=== PATIENT | female | born 1955 | race Caucasian/White ===

== ENCOUNTER → 2020-11-19 12:42 | Outpatient (CLI) | payer MEDICARE, SELFPAY ==
--- NOTE | ~2020-11-19 | MM_ITS ---
EXAMINATION: MM screening [facility] BI w sally HISTORY: Screening mammogram TECHNIQUE: Craniocaudal and mediolateral oblique 3-D tomosynthesis images were obtained and synthetic 2-D images were generated. CAD analysis was submitted and interpreted. COMPARISON: 09/26/2019, 03/21/2018, 04/2016 bilateral digital screening mammogram examinations BREAST PARENCHYMAL COMPOSITION: There are scattered areas of fibroglandular density. FINDINGS: Stable mild fibroglandular asymmetry. There is no evidence of suspicious mass, calcificatio n, or architectural distortion to suggest malignancy in either breast. There has been no suspicious i nterval change. IMPRESSION: 1. No mammographic evidence of malignancy. 2. Recommend routine screening mammography in one year. BI-RADS Category 2: Benign finding(s). Reviewed, dictated and finalized at location A. [employer]
== END ==
PROVIDERS: PCP Internal Medicine; Visit Provider Internal Medicine
DX: Z12.31 Encounter for screening mammogram for malignant neoplasm of breast (principal)
CPT/HCPCS: 77063; 77067

== ENCOUNTER 2021-12-17 00:38 | Day surgery (SDC) | payer MEDICARE, SELFPAY ==
[2021-12-08 13:51] VITALS: BMI 23.8
[2021-12-17 08:30] VITALS: BP 175/84; PULSE 86; RESP 20; TEMP 36.7; O2SAT 99; BMI 23.6
[2021-12-17] MEDS: LACTATED RINGERS 1,000 ML 150 ML IV CONT (08:57)
--- NOTE | 2021-12-17 09:20 | P.CONGI_ITS ---
Assessment and Plan Assessment and plan (1) Family history of colon cancer in mother: Code(s): Z80.0 - Family history of malignant neoplasm of digestive organs Status: Acute Assessment and Plan: Patient has a family history of colon cancer in her mother. For this reason screening colonoscopy will be performed now and consider this at 5 year intervals in the future. (2) Dysphagia: Code(s): R13.10 - Dysphagia, unspecified Status: Acute Assessment and Plan: Patient notes infrequent episodes were food will catch in her throat. An EGD is requested to exclude esophageal narrowing or pathology. Further recommendations will be given after endoscopy. GI Consult Note Consult date/time: 12/17/21 09:20 HPI: Carmel Monteiro is a 66 year old female presents for both colonoscopy and EGD. Patient presents for neoplasia screening. Her family history is significant that her mother had colon cancer. Patient underwent a colonoscopy in 2015 that revealed a benign hyperplastic colon polyp. Patient denies any pain. Her bowel habits are regular. She denies any bleeding. Patient does report that food will catch in her throat occasionally. An EGD is requested to exclude obstruction. Patient denies heartburn. She has had no bleeding or weight loss. Review of Systems Review of Systems: All systems reviewed & are unremarkable except as noted in HPI and below PMFSH Family History Family History Mother Carcinoma of colon Family history of malignant neoplasm of esophagus Patient's mother is Father Patient's father is Acute myocardial infarction Sibling Patient's sister is in good health Patient's brother is in good health Social History Social History Smoking status: Former smoker Tobacco type: cigarettes Second hand tobacco smoke exposure: No Alcohol intake: current Drinks per week: 10 Alcohol use details: glass of wine twice a week Substance use: never Substance use type: does not use Living arrangements: alone Spiritual care concerns: No Meds Home Medications and Allergies Home Medications Medication Instructions Recorded Confirmed Type ibuprofen 600 mg tablet 600 mg PO BID #180 tablet 05/25/21 12/17/21 Rx lisinopril 10 mg tablet 10 mg PO DAILY #90 tablet 09/27/21 12/17/21 Rx Allergies Allergy/AdvReac Type Severity Reaction Status Date / Time No Known Allergies Allergy Verified 12/17/21 08:41 Vital Signs Vital Signs - 24 hr 12/17/21 08:30 Temperature 98.1 F Pulse Rate 86 Respiratory Rate 20 Blood Pressure 175/84 H Pulse Oximetry 99 Exam Narrative: Physical exam reveals patient to be alert. Vital signs stable. HEENT exam is unremarkable. Patient is anicteric. Lungs are clear to auscul tation and percussion. Heart is without murmur or extra sounds. Abdominal exam bowel sounds are present soft nontender with no organomegaly. Digital external rectal exam is normal.
[2021-12-17] MEDS: BENZOCAINE (*SP) 60 ML SPRAY CAN (HURRICAINE) 1 SPRAY MUCOUS MEM (09:30)
--- NOTE | 2021-12-17 09:40 | SUR.OPER ---
EGD start [id number] Colonoscopy start [id number]
--- NOTE | 2021-12-17 09:40 | WPDANESEPPF ---
Anes - Initial Pre Proc Eval Procedure: Operation Date: 12/17/21 09:30 Proposed Procedures p Esophagogastroduodenoscopy & Screening Colonoscopy - Aleks Mtz MD Date/Time: 12/17/21 09:40 Surgeon: Aleks Mtz MD Pre Op Diagnosis: hx of colon polyps, dysplasia Patient Data Age: 66 Gender: F Height: 1.65 m Weight: 64.5 kg Last Vital Signs Temp 98.1 F 12/17/21 08:30 Pulse 86 12/17/21 08:30 Resp 20 12/17/21 08:30 BP 175/84 H 12/17/21 08:30 Pulse Ox 99 12/17/21 08:30 Allergies Allergy/AdvReac Type Severity Reaction Status Date / Time No Known Allergies Allergy Verified 12/17/21 08:41 Home Medications Medication Instructions Recorded Confirmed Type ibuprofen 600 mg tablet 600 mg PO BID #180 tablet 05/25/21 12/17/21 Rx lisinopril 10 mg tablet 10 mg PO DAILY #90 tablet 09/27/21 12/17/21 Rx Patient hx anesthesia problems: none Family hx anesthesia problems: none Results Review: All pre-operative results and documents have been reviewed as part of the pre-operative evaluation. [facility] Family History Family History Mother Carcinoma of colon Family history of malignant neoplasm of esophagus Patient's mother is Father Patient's father is Acute myocardial infarction Sibling Patient's sister is in good health Patient's brother is in good health Social History Social History Smoking status: Former smoker Tobacco type: cigarettes Second hand tobacco smoke exposure: No Alcohol intake: current Drinks per week: 10 Alcohol use details: glass of wine twice a week Substance use: never Substance use type: does not use Living arrangements: alone Spiritual care concerns: No Anes - Eval Final PreProcedure Day of Procedure 12/17/21 09:40 Patient weight: normal Heart: regular rate and rhythm Lungs: clear to auscultation Airway: Mallampati scale class II Neurological: alert and oriented Last oral intake: >/= 8 hours ASA classification: II Emergent: no Anesthetic plan: proceed Anesthesia type and monitoring: general GIVS and standard monitoring Results Review: All pre-operative results and documents have been reviewed as part of the pre-operative evaluation. Informed Consent: The patient's anesthetic plan and its attendant risks and benefits were discussed with the patient/family/POA. Questions were solicited and answers provided to the satisfaction of the patient/family/POA.
[2021-12-17 09:59] VITALS: BP 115/69; PULSE 75; RESP 22; O2SAT 100
[2021-12-17 10:09] VITALS: BP 152/91; PULSE 70; RESP 20; O2SAT 100
[2021-12-17 10:19] VITALS: BP 153/69; PULSE 62; RESP 16; O2SAT 100
== END 2021-12-17 10:31 | disposition home or self-care (01) ==
PROVIDERS: PCP Internal Medicine; Visit Provider Internal Medicine Gastroenterology
PROC: 0DJ08ZZ Inspection of Upper Intestinal Tract, Via Natural or Artificial Opening Endoscopic (ICD-10-PCS; CPT 43235; principal; 2021-12-17 09:30)
DX: R13.10 Dysphagia, unspecified (principal); K21.00 Gastro-esophageal reflux disease with esophagitis, without bleeding; K31.A0 Gastric intestinal metaplasia, unspecified; Z80.0 Family history of malignant neoplasm of digestive organs; Z87.891 Personal history of nicotine dependence
CPT/HCPCS: 43239; 43450; 88305; J2704; J7120

== ENCOUNTER → 2022-03-19 15:13 | Outpatient (CLI) | payer MEDICARE, SELFPAY ==
--- NOTE | ~2022-03-19 | MM_ITS ---
EXAMINATION: MM screening [facility] BI w sally HISTORY: Screening TECHNIQUE: Craniocaudal and mediolateral oblique 3-D tomosynthesis images were obtained and synthetic 2-D images were generated. CAD analysis was submitted and interpreted. COMPARISON: Comparison to multiple prior studies sequentially, with oldest reviewed study dated 06/12. BREAST PARENCHYMAL COMPOSITION: There are scattered areas of fibroglandular density. FINDINGS: There is no evidence of suspicious mass, calcification, or architectural distortion to sugg est malignancy in either breast. There has been no suspicious interval change. IMPRESSION: 1. No mammographic evidence of malignancy. 2. Recommend routine screening mammography in one year. BI-RADS Category 1: Negative Reviewed, dictated and finalized at location A.
== END ==
PROVIDERS: PCP Internal Medicine; Visit Provider Internal Medicine
DX: Z12.31 Encounter for screening mammogram for malignant neoplasm of breast (principal)
CPT/HCPCS: 77063; 77067

== ENCOUNTER 2022-04-27 08:56 | Outpatient (CLI) | payer MEDICARE, SELFPAY ==
--- NOTE | ~2022-04-27 | US_ITS ---
US abdomen complete EXAMINATION: US Abdomen Complete INDICATION: Nausea. PROCEDURE: Realtime High Resolution abdomen ultrasound. COMPARISON: No prior studies for comparison FINDINGS: Gallbladder within normal limits. No gallstones, pericholecystic fluid, gallbladder wall t hickening or biliary dilatation. Common bile duct measures 4 mm. Liver echotexture within normal limits without focal mass. Pancreas within normal limits. Pancreati c tail is obscured by bowel gas. Spleen is unremarkeable. Renal echotexture is within normal limits bilaterally without hydronephrosis, contour deforming mass or renal stone. Right kidney measures 9.5 cm. Left kidney measures 10.9 cm. Visualized aspects of the aorta and IVC are within normal limits. Portal vein is patent. No sonograph ic Lorenzo's sign indicated by the technologist. IMPRESSION: 1: Normal abdominal ultrasound. Reviewed, dictated and finalized at location B.
== END 2022-04-27 08:57 | disposition home or self-care (01) ==
PROVIDERS: PCP Internal Medicine; Visit Provider Internal Medicine
DX: R10.11 Right upper quadrant pain (principal); R11.0 Nausea
CPT/HCPCS: 76700

== ENCOUNTER → 2023-04-14 11:57 | Outpatient (CLI) | payer MEDICARE, SELFPAY ==
--- NOTE | ~2023-04-14 | MM_ITS ---
EXAMINATION: MM screening [facility] BI w sally HISTORY: Screening mammogram TECHNIQUE: Craniocaudal and mediolateral oblique 3-D tomosynthesis images were obtained and synthetic 2-D images were generated. CAD analysis was submitted and interpreted. COMPARISON: 03/19/2022, 11/19/2020, 09/26/2019 bilateral screening mammogram examinations BREAST PARENCHYMAL COMPOSITION: There are scattered areas of fibroglandular density. FINDINGS: Stable mild fibroglandular asymmetry prior studies despite breast evidence of interval weig ht loss. Occasional benign calcifications. There is no evidence of suspicious mass, calcification, or architectural distortion to suggest malignancy in either breast. There has been no suspicious interv al change. IMPRESSION: 1. No mammographic evidence of malignancy. 2. Recommend routine screening mammography in one year. BI-RADS Category 2: Benign finding(s). Reviewed, dictated and finalized at location A.
--- NOTE | ~2023-04-14 | DEXA_ITS ---
Bone Density Report Name: BARRETT GAMBLE Age: 68 Sex: Female Ethnicity: White Date of : 1955 Indication: osteopenia; height loss; postmenopausal Referring Provider: DASH AMEZQUITA Study: Bone densitometry was performed. Exam Date: April 14, 2023 Accession number: [id number] Bone Density: Region BMD T-score Z-score Classification AP Spine (L1, L2, L4) 0.900 -1.2 0.8 Osteopenia Femoral Neck (Left) 0.625 -2.0 -0.3 Osteopenia Total Hip (Left) 0.712 -1.9 -0.4 Osteopenia Femoral Neck (Right) 0.606 -2.2 -0.4 Osteopenia Total Hip (Right) 0.695 -2.0 -0.6 Osteopenia Total Hip Mean 0.704 -2.0 -0.5 Osteopenia World Health Organization criteria for BMD impression classify patients as: Normal (T-score at or above -1.0), Osteopenia (T-score between -1.0 and -2.5), or Osteoporosis (T-score at or below -2.5). 10-year Fracture Risk(1): Major Osteoporotic Fracture 11% Hip Fracture 2.3% Reported Risk Factors: [place] (), Neck BMD=0.606, BMI=20.2 (1) FRAX(R) Version 3.08. Fracture probability calculated for an untreated patient. Fracture probability may be lower if the patient has received treatment. Previous Exams: Region Exam Age BMD T-score BMD Change BMD Change Date g/cm2 vs Baseline vs Previous AP Spine(L1, L2, L4) 04/14/2023 68 0.900 -1.2 0.051* 0.051* 11/17/2011 56 0.849 -1.7 Total Hip(Left) 04/14/2023 68 0.712 -1.9 -0.126* -0.107* 04/15/2016 61 0.819 -1.0 -0.019 -0.019 11/17/2011 56 0.837 -0.9 Total Hip(Right) 04/14/2023 68 0.695 -2.0 -0.176* -0.143* 04/15/2016 61 0.837 -0.9 -0.033* -0.033* 11/17/2011 56 0.871 -0.6 *Denotes significance at 95% confidence level, LSC for AP Spine = 0.022 g/cm2, LSC for Total Hip = 0.027 g/cm2 Clinical Information Provided by Patient: Has used the following medications: Vitamin D Patient maximum height was 65.5 Menopause Age: 55 No regular weight bearing exercise Does not regularly consume dairy products Drinks caffeinated beverages Onset of menses at age 12 Number of children 2 Impression: The patient has low bone mass, based on the Right Femoral Neck T-score. The patient has an estimated ten-year risk of hip fracture of 2.3% and an estimated ten-year risk of major fracture of 11%, based on the WHO FRAX algorithm. The BMD for the Total Hip(Left) decreased, changing by -0.107 sinc
== END ==
PROVIDERS: PCP Internal Medicine; Visit Provider Internal Medicine
DX: Z12.31 Encounter for screening mammogram for malignant neoplasm of breast (principal); Z78.0 Asymptomatic menopausal state; M85.89 Other specified disorders of bone density and structure, multiple sites
CPT/HCPCS: 77063; 77067; 77080